=== PATIENT | male | born 1950 | race Caucasian/White ===

== ENCOUNTER 2024-08-17 13:52 | Outpatient (CLI) | payer MEDICARE, SELFPAY ==
[2024-08-17 15:00] LABS: Reticulocyte % (Auto) 2.1 % (0.9-3.2)
[2024-08-17 15:16] LABS: Lactate Dehydrogenase 197 U/L (313-618)
[2024-08-17 15:43] LABS: Iron 94 ug/dL (49-181)
[2024-08-17 15:54] LABS: Total Iron Binding Capacity 263 ug/dL (261-462)
[2024-08-17 16:20] LABS: Ferritin 114 ng/ml (17.9-464)
[2024-08-17 16:24] LABS: Vitamin B12 671 pg/mL (239-931)
[2024-08-18 07:12] LABS: Haptoglobin 279 mg/dL (34-355)
[2024-08-19 13:57] LABS: Peripheral Smear Review Scanned Result
== END 2024-08-17 23:59 | disposition home or self-care (01) ==
LOC: LAB 13:54
PROVIDERS: PCP Internal Medicine Adolescent Medicine; Visit Provider Internal Medicine Medical Oncology
DX: D64.9 Anemia, unspecified (principal); Z79.899 Other long term (current) drug therapy
CPT/HCPCS: 36415; 82607; 82728; 82746; 83010; 83540; 83550; 83615; 85044; 86880